=== PATIENT | female | born 1990 | race Caucasian/White ===

== ENCOUNTER 2022-11-12 09:52 | Outpatient (CLI) | payer OTHER, SELFPAY ==
--- NOTE | ~2022-11-12 | US_ITS ---
EXAMINATION: US soft tissue groin RT DATE: 11/12/2022 11:04 INDICATION: Right inguinal hernia. Pelvic and perineal pain. TECHNIQUE: Multiple grayscale and Doppler ultrasound images of the right groin were obtained. COMPARISON: None FINDINGS: There is a mass of fat in the right labia. IMPRESSION: 1. Mass of fat in the right labia, likely a right inguinal hernia. Reviewed, dictated and finalized at location A.
--- NOTE | ~2022-11-12 | US_ITS ---
EXAMINATION: US soft tissue groin LT DATE: 11/12/2022 11:04 INDICATION: Left inguinal hernia. Pelvic and perineal pain. TECHNIQUE: Multiple grayscale and Doppler ultrasound images of the left groin were obtained. COMPARISON: None FINDINGS: There is no abnormal mass or lymphadenopathy in the left groin. No specific evidence of a h ernia. IMPRESSION: 1. No abnormality in the left groin. Reviewed, dictated and finalized at location A.
== END 2022-11-12 09:53 | disposition home or self-care (01) ==
PROVIDERS: Visit Provider Nurse Practitioner Obstetrics & Gynecology
DX: R10.2 Pelvic and perineal pain (principal)
CPT/HCPCS: 76882